=== PATIENT | male | born 1945 | race Caucasian/White ===

== ENCOUNTER 2017-06-07 11:38 | Outpatient (CLI) | payer MEDICARE ==
[2017-06-07 13:49] LABS: ALT (SGPT) 13 U/L (8-55); AST (SGOT) 18 U/L (5-34); Albumin 4.1 g/dL (3.4-4.8); Alkaline Phosphatase 58 U/L (40-150); Anion Gap 12 mmol/L (10-20); BUN (Urea Nitrogen) 19 mg/dL (8.4-25.7); Bilirubin, Total 0.8 mg/dL (0.2-1.2); Calc. Creatinine Clearance 0 mL/min (70-130); Calcium 9.9 mg/dL (7.8-10.44); Carbon Dioxide 27 mmol/L (23-31); Cardiac Risk 5.4 (Less than 4.5); Chloride 103 mmol/L (98-107); Cholesterol 231 mg/dl (< 200 Desired); Estimated GFR-MDRD 59; Glucose 85 mg/dL (83-110); HDL Cholesterol 43 mg/dL (>60 Neg Risk); LDL Cholesterol, Calculated 141 mg/dL; Potassium 4.9 mmol/L (3.5-5.1); Protein, Total 7.1 g/dL (5.8-8.1); Sodium 137 mmol/L (136-145); Triglycerides 233 mg/dL (Less than 150)
[2017-06-07 13:51] LABS: #Basophils 0.1 thou/uL (0.0-0.2); #Eosinphils 0.4 thou/uL (0.0-0.7); #Lymphocytes 2.2 thou/uL (1.20-3.40); #Neutrophils 5.5 thou/uL (1.40-6.50); %Basophils 1.4 % (0.0-1.0); %Eosinophils 4.3 % (0.0-10.0); %Lymphocytes 23.6 % (21.0-51.0); %Monocytes 10.6 % (0.0-10.0); %Neutrophils 60.1 % (42.0-75.0); Hemoglobin 16.2 g/dL (14.0-18.0); Mean Corpuscular HGB CONC 31.7 g/dL (32.0-36.0); Mean Corpuscular Hemoglobin 30.3 pg (27.0-31.0); Mean Corpuscular Volume 95.6 fl (80.0-94.0); Mean Platelet Volume 9.6 fL (7.4-10.4); Platelet Count 210 thou/uL (130-400); RBC Distribution Width 13.2 % (11.5-14.5); Red Blood Cell (RBC) Count 5.35 mill/uL (4.70-6.10); White Blood Cell (WBC) Count 9.2 thou/uL (4.8-10.8)
[2017-06-07 14:10] LABS: PSA-Asymptomatic (SCREENING) 0.41 ng/mL (0-4.0); Thyroid Stimulating Hormone 3.6631 uIU/mL (0.35-4.94)
[2017-06-07 14:21] LABS: Bilirubin Negative (Negative); Blood, Urine Trace (Negative); Clarity Clear (Clear); Glucose, Urine (Dipstick) Negative (Negative); Leukocyte Negative (Negative); Nitrite Negative (Negative); Protein, Urine (Dipstick) Negative (Neg-Trace); Specific Gravity, Urine 1.025 (1.005-1.030); Urobilinogen 0.2 mg/dL (0.2-1.0)
[2017-06-07 14:31] LABS: Bacteria/HPF Rare-Few HPF (None Seen); Other Microscopic Description NO; RBC/HPF 0-3 HPF (0-3); Squamous Epithelial None Seen HPF (0-3); WBC/HPF None Seen HPF (0-3)
== END 2017-06-07 11:39 | disposition home or self-care (01) ==
LOC: NAV LAB 11:38
PROVIDERS: ATTEND Internal Medicine
DX: Z12.5 Encounter for screening for malignant neoplasm of prostate (principal); E78.5 Hyperlipidemia, unspecified; I48.0 Paroxysmal atrial fibrillation; Z79.899 Other long term (current) drug therapy
CPT/HCPCS: 36415; 80053; 80061; 81003; 81015; 84443; 85025; G0103

== ENCOUNTER 2017-06-10 20:19 | Outpatient (CLI) | payer MEDICARE | END 2017-06-10 20:20 | disposition home or self-care (01) | LOC: NAV LABSP 20:19 | PROVIDERS: ATTEND Internal Medicine | DX: Z12.5 Encounter for screening for malignant neoplasm of prostate (principal); G45.9 Transient cerebral ischemic attack, unspecified; I48.0 Paroxysmal atrial fibrillation; E78.5 Hyperlipidemia, unspecified; Z79.899 Other long term (current) drug therapy | CPT/HCPCS: 82274 ==

== ENCOUNTER 2019-01-18 10:42 | Outpatient (CLI) | payer MEDICARE ==
--- NOTE | 2019-01-18 10:56 | RAD ---
FRit knee 4 views INDICATION: History of right knee pain COMPARISON: None FINDINGS: There is severe osteoarthrosis of the right knee with chondrocalcinosis. There are prominen t intra-articular bodies seen within the suprapatellar pouch of the right knee. The largest measures 2 cm. An additional larger intra-articular body measures 1.3 cm. No acute fracture or subluxation is evident. IMPRESSION: Severe right knee osteoarthrosis with chondrocalcinosis and intra-articular bodies.
== END 2019-01-18 10:43 | disposition home or self-care (01) ==
LOC: NAV RAD 10:42
PROVIDERS: ATTEND Internal Medicine
DX: M25.561 Pain in right knee (principal); M17.11 Unilateral primary osteoarthritis, right knee; M11.261 Other chondrocalcinosis, right knee

== ENCOUNTER 2019-04-27 19:09 | Emergency (ER) | payer MEDICARE ==
[2019-04-27] MEDS ORDERED: Lidocaine 1% (PF) 30 ML VIAL ONE (19:35)
[2019-04-27] MEDS ORDERED: Adacel (T-DAP) 0.5 ML SYRINGE ONE (19:35)
[2019-04-27] MEDS ORDERED: Bacitracin 1 PK ONE (19:53)
== END 2019-04-27 20:15 | disposition home or self-care (01) ==
LOC: NAV ERS 19:09
DX: S61.213A Laceration without foreign body of left middle finger without damage to nail, initial encounter (principal); I48.91 Unspecified atrial fibrillation; E78.5 Hyperlipidemia, unspecified; Z79.899 Other long term (current) drug therapy; Z79.01 Long term (current) use of anticoagulants; Z86.73 Personal history of transient ischemic attack (TIA), and cerebral infarction without residual deficits; W45.8XXA Other foreign body or object entering through skin, initial encounter
CPT/HCPCS: 12001; 90471; 90715; J2001